=== PATIENT | female | born 1950 | race Two or more races ===

== ENCOUNTER 2018-04-27 05:40 | Day surgery (SDC) | payer OTHER ==
[~2018-04-27 05:40] MED LIST: COZAAR25 MG PO; WELLBUTRIN SR100 MG PO
== END 2018-04-27 12:15 | disposition home or self-care (01) ==
LOC: CIR.AMB 05:40
DX: G56.01 Carpal tunnel syndrome, right upper limb (principal); M72.0 Palmar fascial fibromatosis [Dupuytren]; M65.341 Trigger finger, right ring finger

== ENCOUNTER 2019-09-30 06:55 | Day surgery (SDC) | payer OTHER ==
[~2019-09-30 06:55] MED LIST changes: +ATORVASTATIN CA10 MG PO; +DULOXETINE HCL40 MG PO; +MEMANTINE HCL10 MG PO; +PREGABALIN75 MG PO
== END 2019-09-30 12:00 | disposition home or self-care (01) ==
LOC: CIR.AMB 06:55 → ADM 11:00 → CIR.AMB 11:00
PROVIDERS: ATTEND Anesthesiology Pain Medicine
DX: M99.43 Connective tissue stenosis of neural canal of lumbar region (principal); M48.07 Spinal stenosis, lumbosacral region; Z20.828 Contact with and (suspected) exposure to other viral communicable diseases

== ENCOUNTER 2021-06-14 07:02 | Day surgery (SDC) | payer OTHER ==
[~2021-06-14 07:02] MED LIST changes: +ATIVAN2 M1 PO; +BUPROPION PO; +RELAFEN PO; +[UNRECOGNIZED DRUG - OTHER] PO
== END 2021-06-14 13:00 | disposition home or self-care (01) ==
LOC: CIR.AMB 07:02
PROVIDERS: ATTEND Anesthesiology Pain Medicine
DX: M46.1 Sacroiliitis, not elsewhere classified (principal); Z91.013 Allergy to seafood; I10 Essential (primary) hypertension; F32.A Depression, unspecified